=== PATIENT | female | born 1980 | race Caucasian/White ===

== ENCOUNTER 2024-05-25 21:47 | Emergency (ER) | payer MEDICAID, SELFPAY ==
[2024-05-25 21:48] VITALS: BP 150/106; PULSE 101; RESP 16; TEMP 36.2; O2SAT 100; BMI 45.6
[2024-05-25] MEDS: FLUCONAZOLE 150 MG TABLET PO (22:21)
[2024-05-25] MEDS: Ibuprofen 600 MG Tablet PO (22:21)
[2024-05-25] MEDS: Diphth,Pertuss(Acell),Tet Vac 0.5 ML Vial IM (22:21)
[2024-05-25] MEDS: Amox/Clavulanate 875 MG Tablet PO (22:21)
== END 2024-05-25 23:06 | disposition home or self-care (01) ==
PROVIDERS: Emergency Provider Emergency Medicine; PCP Family Medicine; Visit Provider Emergency Medicine
DX: S61.253A Open bite of left middle finger without damage to nail, initial encounter (principal); F17.290 Nicotine dependence, other tobacco product, uncomplicated; Z23 Encounter for immunization; W54.0XXA Bitten by dog, initial encounter
CPT/HCPCS: 73130; 90471; 90715; 99283